=== PATIENT | female | born 1990 | race African-American/Black ===

== ENCOUNTER 2016-05-01 16:02 | Emergency (ER) | payer OTHER ==
[2016-05-01] MEDS ORDERED: KETOROLAC 30 MG/ML VIAL (J1885) As Ordered ONE (16:45)
--- NOTE | 2016-05-01 16:54 | REP ---
Clinical: Trauma. Comparison: None. Findings: The ventricles, sulci, and cisterns are normal in position and appearance. Pearson-white differentiation is maintained. No acute intracranial hemorrhage, mass/mass effect, pathology or trauma/injury. No evidence for acute infarction. No extra-axial fluid collection. Calvarium is intact. Paranasal sinuses and mastoid air cells are clear. Impression: Normal noncontrast head CT. No evidence for acute intracranial pathology or trauma/injury. Signed by Poncho Canela MD 05/01/2016 04:46 P
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
--- NOTE | 2016-05-01 17:17 | REP ---
Five view lumbar sacral spine series 05/01/2016 Indication: Comparison: None Findings: There is no acute fracture or spondylolisthesis in the lumbosacral spine disc spaces are well maintained. There is anterior angulation of the coccyx which can be consistent with normal variant or sequela of an old healed fracture SI joints are intact. Impression: No acute fracture or spondylolisthesis. There are no degenerative disc changes identified. Mild anterior angulation of the coccyx which can be normal variant or sequela of an old healed fracture Signed by Kandice Watson MD 05/01/2016 05:08 P
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
== END 2016-05-01 17:43 | disposition home or self-care (01) ==
LOC: M ED 16:02
DX: M54.5 Low back pain (principal); R51 Headache; S16.1XXA Strain of muscle, fascia and tendon at neck level, initial encounter; V49.40XA Driver injured in collision with unspecified motor vehicles in traffic accident, initial encounter; Y92.410 Unspecified street and highway as the place of occurrence of the external cause; Y93.89 Activity, other specified; Y99.8 Other external cause status
CPT/HCPCS: 70450; 72110; 72125; 96372; 99283; J1885